=== PATIENT | male | born 1990 ===

== ENCOUNTER 2017-01-11 23:55 | Emergency (ER) | payer OTHER ==
[2017-01-11 23:56] VITALS: BMI 35.2
[2017-01-12 00:04] VITALS: BP 127/84; PULSE 80; RESP 16; TEMP 99.3; O2SAT 100
--- NOTE | 2017-01-12 00:10 | ED PDOC ---
HPI: CCC, URI, Sore Throat Time Seen by Provider: 01/12/17 00:09 Chief Complaint (Nursing): ENT Problem Chief Complaint (Provider): Sore throat History Per: Patient Additional Complaint(s): To ED for evaluation of sore throat and fever x 1 day. Last took Tylenol at 8pm. Patient concerned due to being on chemotherapy, last session . Past Medical History Vital Signs: Last Vital Signs Temp 99.3 F 01/12/17 00:00 Pulse 80 01/12/17 00:00 Resp 16 01/12/17 00:00 BP 127/84 01/12/17 00:00 Pulse Ox 100 01/12/17 00:10 - Medical History PMH: Anxiety Denies: Chronic Kidney Disease - Family History Family History: States: Diabetes - Immunization History Hx Tetanus Toxoid Vaccination: No Hx Influenza Vaccination: No Hx Pneumococcal Vaccination: No - Home Medications Home Medications: Ambulatory Orders Medication Instructions Recorded Clindamycin [Cleocin] 300 mg PO Q8 10 Days 01/12/17 Ibuprofen [Motrin] 600 mg PO Q6 #20 tab 01/12/17 - Allergies Allergies/Adverse Reactions: Allergies Allergy/AdvReac Type Severity Reaction Status Date / Time avocado Allergy SWELLING Verified 01/11/17 23:59 seasonal allergies Allergy CONGESTION Uncoded 01/11/17 23:59 - Laboratory Results Result Diagrams: 01/12/17 00:50 01/12/17 00:50 - ECG O2 Sat by Pulse Oximetry: 100 Medical Decision Making Medical Decision Making: Dr. Mendoza [phone] Contacted by video game script writer Disposition - Clinical Impression Clinical Impression: Pharyngitis - Disposition Referrals: Librado Frazier MD [Primary Care Provider] - Condition: GOOD Prescriptions: Clindamycin [Cleocin] 300 mg PO Q8 10 Days Ibuprofen [Motrin] 600 mg PO Q6 #20 tab Instructions: Pharyngitis (ED)
[2017-01-12] MEDS ORDERED: Clindamycin 600 MG in Sodium Chloride 0.9% 100 ML IVPB STA (00:23)
[2017-01-12 01:06] LABS: BASO # 0.1 K/uL (0.0-0.2); BASO % 1.2 % (0.0-2.0); EOS # 0.1 K/uL (0.0-0.7); EOS % 2.9 % (0.0-4.0); HEMATOCRIT 43.1 % (35.0-51.0); LYMPH # 1.6 K/uL (1.0-4.3); LYMPH % 33.7 % (20.0-40.0); MEAN CELL VOLUME 86.3 fl (80.0-94.0); MEAN CORPUSCULAR HEMOGLOBIN 28.2 pg (27.0-31.0); MEAN CORPUSCULAR HGB CONC 32.6 g/dL (33.0-37.0); MEAN PLATELET VOLUME 9.2 fl (7.2-11.7); MONO # 0.4 K/uL (0.0-0.8); NEUT # 2.5 K/uL (1.8-7.0); NEUT % 54.2 % (50.0-75.0); NRBC % 0.1 % (0.0-0.0); WHITE BLOOD COUNT 4.6 K/uL (4.8-10.8)
[2017-01-12 01:46] LABS: ALB/GLOB RATIO 1.2 (1.0-2.1); ALKALINE PHOSPHATASE 57 U/L (38-126); ALT/SGPT 38 U/L (21-72); AST/SGOT 21 U/L (17-59); BILIRUBIN,TOTAL 0.7 mg/dl (0.2-1.3); BLOOD UREA NITROGEN 19 mg/dl (9-20); CALCIUM 9.1 mg/dL (8.4-10.2); CARBON DIOXIDE 23 mmol/L (22-30); CHLORIDE 101 mmol/L (98-107); GFR AFRICAN-AMERICAN > 60; GLUCOSE,RANDOM 103 mg/dL (75-110); POTASSIUM 4.4 MMOL/L (3.6-5.0); SODIUM 140 mmol/l (132-148)
== END 2017-01-12 02:20 | disposition home or self-care (01) ==
LOC: H.ER 23:55
DX: J02.9 Acute pharyngitis, unspecified (principal); R50.9 Fever, unspecified

== ENCOUNTER 2017-03-02 01:44 | Emergency (ER) | payer OTHER ==
[2017-03-02 01:45] VITALS: BMI 35.2
[2017-03-02 02:03] VITALS: PULSE 85; RESP 16; TEMP 98.4; O2SAT 98
[2017-03-02] MEDS ORDERED: Sodium Chloride 0.9% 1,000 ML IV STA (02:19)
--- NOTE | 2017-03-02 02:32 | ED PDOC ---
HPI: Abdomen Time Seen by Provider: 03/02/17 01:58 Chief Complaint (Nursing): Abdominal Pain Chief Complaint (Provider): epigastric pain History Per: Patient History/Exam Limitations: no limitations Onset/Duration Of Symptoms: Days (3) Outside of [place] travel?: No Current Symptoms Are (Timing): Still Present Location Of Pain/Discomfort: Epigastric Quality Of Discomfort: Burning, Pressure Associated Symptoms: denies: Fever, Chills, Nausea, Vomiting, Diarrhea, Loss Of Appetite, Back Pain, Chest Pain, Constipation, Urinary Symptoms Additional Complaint(s): 27 yo M in ED for eval of epigastric pain x 3 d without vomiting nausea fever back pain change in BM. pt states that he has colon cancer undergoing chemo tx since nov. denies noting pain after eating or feeling improved symptoms with eating. admits to hx of GERD, but never with discomfort like this. Past Medical History Reviewed: Historical Data, Nursing Documentation, Vital Signs Vital Signs: Last Vital Signs Temp 98.4 F 03/02/17 02:00 Pulse 85 03/02/17 02:00 Resp 16 03/02/17 02:00 BP 144/92 H 03/02/17 04:26 Pulse Ox 98 03/02/17 02:34 - Medical History PMH: Anxiety Denies: Chronic Kidney Disease - Family History Family History: States: Diabetes - Immunization History Hx Tetanus Toxoid Vaccination: No Hx Influenza Vaccination: No Hx Pneumococcal Vaccination: No - Home Medications Home Medications: Ambulatory Orders Medication Instructions Recorded Clindamycin [Cleocin] 300 mg PO Q8 10 Days 01/12/17 Ibuprofen [Motrin] 600 mg PO Q6 #20 tab 01/12/17 Famotidine [Pepcid] 20 mg PO BID #16 tab 03/02/17 - Allergies Allergies/Adverse Reactions: Allergies Allergy/AdvReac Type Severity Reaction Status Date / Time avocado Allergy SWELLING Verified 01/11/17 23:59 seasonal allergies Allergy CONGESTION Uncoded 01/11/17 23:59 Review of Systems ROS Statement: Except As Marked, All Systems Reviewed And Found Negative Constitutional: Negative for: Fever, Chills Cardiovascular: Negative for: Chest Pain, Palpitations Gastrointestinal: Positive for: Abdominal Pain. Negative for: Nausea, Vomiting , Diarrhea Physical Exam - Reviewed Nursing Documentation Reviewed: Yes Vital Signs Reviewed: Yes - Physical Exam Appears: Positive for: Non-toxic, No Acute Distress, Uncomfortable Head Exam: Positive for: ATRAUMATIC, NORMAL INSPECTION, NORMOCEPHALIC Skin: Positive for: Normal Color, Warm, DRY ENT: Positive for: Normal ENT Inspection Neck: Positive for: Normal, Painless ROM Cardiovascular/Chest: Positive for: Regular Rate, Rhythm Respiratory: Positive for: CNT, Normal Breath Sounds Gastrointestinal/Abdominal: Positive for: Bowel Sounds, Soft, Tenderness ( epigastric area(mild)) Back: Positive for: Normal Inspection. Negative for: L CVA Tenderness, R CVA Tenderness Extremity: Positive for: Normal ROM Neurologic/Psych: Positive for: Alert, Oriented - Laboratory Results Result Diagrams: 03/02/17 02:28 03/02/17 02:28 - ECG O2 Sat by Pulse Oximetry: 98 - Progress ED Course And Treament: impression: GERD vs gallbladder vs pancres will do cbc/cmp/lipase and give Pepcid/NS fluids. Medical Decision Making Medical Decision Making: ct scan: ABDOMEN: Liver: Apparent mild heterogeneity of LEFT lobe. Gallbladder and bile ducts: No calcified stones. No ductal dilation. Pancreas: No ductal dilation. No mass. Spleen: Mild splenomegaly, increased in size. Adrenals: No mass. Kidneys and ureters: No mass. No hydronephrosis. Stomach and bowel: Postsurgical changes of LEFT colon. Segmental areas of underdistention of colon. No definite mural thickening. No obstruction. Appendix: Normal caliber. No inflammation. PELVIS: Bladder: Unremarkable. Reproductive: Unremarkable as visualized. ABDOMEN and PELVIS: Intraperitoneal space: No significant fluid collection. No free air. Bones/joints: No acute fracture. Soft tissues: Laparotomy scar. Vasculature: Unremarkable. No abdominal aortic aneurysm. Lymph nodes: Several subcentimeter short axis mesenteric lymph nodes, nonspecific. IMPRESSION: 1. Heterogeneity of liver. Recommend MRI to exclude underlying pathology. 2. Mild splenomegaly. 3. Incidental/non-acute findings are described above. PT advised to f/u with pmd stable VS and Rx pepcid for pain. Pt educated on results. Disposition - Clinical Impression Clinical Impression: Abdominal pain - Patient ED Disposition Is Patient to be Admitted: No Counseled Patient/Family Regarding: Studies Performed, Diagnosis, Need For Followup, Rx Given - Disposition Referrals: Librado Frazier MD [Primary Care Provider] - Zev Pressley MD [Staff Provider] - Disposition Time: 04:57 Condition: STABLE Prescriptions: Famotidine [Pepcid] 20 mg PO BID #16 tab Instructions: Gastroesophageal Reflux Disease (ED) Forms: [facility] ED School/Work Excuse
[2017-03-02 02:33] LABS: BASO # 0.1 K/uL (0.0-0.2); BASO % 1.7 % (0.0-2.0); EOS # 0.1 K/uL (0.0-0.7); EOS % 1.7 % (0.0-4.0); HEMATOCRIT 40.8 % (35.0-51.0); LYMPH # 2.1 K/uL (1.0-4.3); LYMPH % 33.6 % (20.0-40.0); MEAN CELL VOLUME 89.7 fl (80.0-94.0); MEAN CORPUSCULAR HEMOGLOBIN 30.9 pg (27.0-31.0); MEAN CORPUSCULAR HGB CONC 34.5 g/dL (33.0-37.0); MONO # 0.8 K/uL (0.0-0.8); MONO % 12.3 % (0.0-10.0); NEUT # 3.1 K/uL (1.8-7.0); NEUT % 50.7 % (50.0-75.0); RED CELL DISTRIBUTION WIDTH 19.3 % (11.5-14.5); WHITE BLOOD COUNT 6.2 K/uL (4.8-10.8)
[2017-03-02 02:49] LABS: CHLORIDE 102 mmol/L (98-107)
[2017-03-02 02:50] LABS: SODIUM 140 mmol/l (132-148)
[2017-03-02 02:52] LABS: GFR AFRICAN-AMERICAN > 60
[2017-03-02 02:53] LABS: ALB/GLOB RATIO 1.2 (1.0-2.1); ALKALINE PHOSPHATASE 58 U/L (38-126); ALT/SGPT 85 U/L (21-72); AST/SGOT 56 U/L (17-59); BLOOD UREA NITROGEN 10 mg/dl (9-20); CALCIUM 9.8 mg/dL (8.4-10.2); CARBON DIOXIDE 28 mmol/L (22-30); GLUCOSE,RANDOM 113 mg/dL (75-110); LIPASE 112 U/L (23-300); TOTAL PROTEIN 7.7 G/DL (6.3-8.2)
[2017-03-02] MEDS ORDERED: Iohexol 300 100 ML IJ ONE (03:54)
[2017-03-02] MEDS ORDERED: Sodium Chloride 0.9% 50 ML IV ONE (03:54)
[2017-03-02 04:27] VITALS: BP 144/92
--- NOTE | 2017-03-02 04:40 | CT ---
EXAM: CT Abdomen and Pelvis With Intravenous Contrast CLINICAL HISTORY: 27 years old, male; Pain; Abdominal pain; Epigastric; Additional info: Epigastric pain severe. Currrenlty getting chemotx TECHNIQUE: Axial computed tomography images of the abdomen and pelvis with intravenous contrast. This CT exam was performed using one or more of the following dose reduction techniques: automated exposure control, adjustment of the mA and/or kV according to patient size, and/or use of iterative reconstruction technique. Coronal and sagittal reformatted images were created and reviewed. CONTRAST: 95 mL of [id number] administered intravenously. COMPARISON: CT - ABD PELVIS PO IV CONTRAST 08/10/2016 4:17:52 PM FINDINGS: Lower thorax: Mild atelectasis. ABDOMEN: Liver: Apparent mild heterogeneity of LEFT lobe. Gallbladder and bile ducts: No calcified stones. No ductal dilation. Pancreas: No ductal dilation. No mass. Spleen: Mild splenomegaly, increased in size. Adrenals: No mass. Kidneys and ureters: No mass. No hydronephrosis. Stomach and bowel: Postsurgical changes of LEFT colon. Segmental areas of underdistention of colon. No definite mural thickening. No obstruction. Appendix: Normal caliber. No inflammation. PELVIS: Bladder: Unremarkable. Reproductive: Unremarkable as visualized. ABDOMEN and PELVIS: Intraperitoneal space: No significant fluid collection. No free air. Bones/joints: No acute fracture. Soft tissues: Laparotomy scar. Vasculature: Unremarkable. No abdominal aortic aneurysm. Lymph nodes: Several subcentimeter short axis mesenteric lymph nodes, nonspecific. IMPRESSION: 1. Heterogeneity of liver. Recommend MRI to exclude underlying pathology. 2. Mild splenomegaly. 3. Incidental/non-acute findings are described above.
--- NOTE | 2017-03-02 13:23 | CARD ---
APPROVED REPORT EKG Measurement Heart [id number] MI 110P8 [id number] <Conclusion> Sinus rhythm with short MI Otherwise normal ECG
== END 2017-03-02 05:24 | disposition home or self-care (01) ==
LOC: H.ER 01:44
DX: R10.13 Epigastric pain (principal); C18.9 Malignant neoplasm of colon, unspecified; K21.0 Gastro-esophageal reflux disease with esophagitis; F41.9 Anxiety disorder, unspecified; R16.1 Splenomegaly, not elsewhere classified

== ENCOUNTER 2017-06-15 02:15 | Emergency (ER) | payer OTHER ==
[2017-06-15 02:16] VITALS: BMI 35.2
[2017-06-15 02:33] VITALS: BP 139/84; PULSE 95; RESP 18; TEMP 98.9; O2SAT 100
--- NOTE | 2017-06-15 02:47 | ED PDOC ---
HPI: General Adult Time Seen by Provider: 06/15/17 02:25 Chief Complaint (Nursing): Rib Injury History Per: Patient Additional Complaint(s): Pt. states earlier today he was taking a shower when he slipped and fell landing on his L side injuring his L shoulder/upper arm and the L side of his chest. Reports chest pain worsens with deep inspiration and with movement. Denies head injury, N/V, anticoagulant use, abdominal pain, bruising, SOB. Past Medical History Reviewed: Historical Data, Nursing Documentation, Vital Signs Vital Signs: Last Vital Signs Temp 98.9 F 06/15/17 02:29 Pulse 95 H 06/15/17 02:29 Resp 18 06/15/17 02:29 BP 139/84 06/15/17 02:29 Pulse Ox 100 06/15/17 05:34 - Medical History PMH: Anxiety Denies: Chronic Kidney Disease Other PMH: Colon CA - Surgical History Other surgeries: colon resection - Family History Family History: States: Diabetes - Immunization History Hx Tetanus Toxoid Vaccination: No Hx Influenza Vaccination: No Hx Pneumococcal Vaccination: No - Home Medications Home Medications: Ambulatory Orders Medication Instructions Recorded Clindamycin [Cleocin] 300 mg PO Q8 10 Days 01/12/17 Ibuprofen [Motrin] 600 mg PO Q6 #20 tab 01/12/17 Famotidine [Pepcid] 20 mg PO BID #16 tab 03/02/17 - Allergies Allergies/Adverse Reactions: Allergies Allergy/AdvReac Type Severity Reaction Status Date / Time avocado Allergy SWELLING Verified 01/11/17 23:59 seasonal allergies Allergy CONGESTION Uncoded 01/11/17 23:59 Review of Systems ROS Statement: Except As Marked, All Systems Reviewed And Found Negative Cardiovascular: Positive for: Chest Pain Respiratory: Positive for: Pleuritic Pain Physical Exam - Physical Exam Appears: Positive for: Well, Non-toxic, No Acute Distress Head Exam: Positive for: ATRAUMATIC, NORMAL INSPECTION, NORMOCEPHALIC Skin: Positive for: Normal Color, Warm. Negative for: Rash Cardiovascular/Chest: Positive for: Regular Rate, Rhythm. Negative for: Chest Non Tender (moderate L sided axillary chest wall tenderness) Respiratory: Positive for: Normal Breath Sounds, Other (no flail chest; no ecchymosis). Negative for: Decreased Breath Sounds, Accessory Muscle Use, Rales , Rhonchi, Respiratory Distress Pulses-Radial (L): 2+ Pulses-Radial (R): 2+ Gastrointestinal/Abdominal: Positive for: Normal Exam, Bowel Sounds, Soft, Other (no ecchymosis). Negative for: Tenderness (to deep palpation including both subcostal areas) Back: Positive for: Normal Inspection. Negative for: L CVA Tenderness, R CVA Tenderness Extremity: Positive for: Normal ROM, Capillary Refill (< 2 seconds of L upper extremity), Other (L lateral shoulder tenderness and mid upper arm tenderness without deformity or swelling) - ECG O2 Sat by Pulse Oximetry: 100 - Radiology X-Ray: Interpreted by Me (L shoulder/humerus x-ray) X-Ray Interpretation: No Acute Disease - Progress ED Course And Treament: CT chest w/o contrast ordered. Pt. offers pain meds but he took Motrin at home with moderate analgesia. 0530 CT chest w/o contrast: 1. No definite noncontrast CT evidence of visceral injury. 2. Splenomegaly. On re-evaluation, pt. sleeping comfortably and easily arousable. Informed of results. Reports he does have a hx of spleenomegaly but has no pain in the abd or LUQ. Abd without any subcostal tenderness b/l. Pt. provided incentive spirometer. Disposition - Clinical Impression Clinical Impression: Chest wall contusion, Shoulder contusion - Patient ED Disposition Is Patient to be Admitted: No - Disposition Disposition: Routine/Home Disposition Time: 05:37 Condition: STABLE Instructions: Chest Wall Pain (ED), Shoulder Sprain (ED) Forms: [employer] (Luxem[place]ish) Print Language: THAI
--- NOTE | 2017-06-15 05:27 | CT ---
EXAM: CT Chest Without Intravenous Contrast CLINICAL HISTORY: 27 years old, male; Injury or trauma; Fall; Initial encounter; Blunt trauma (contusions or hematomas) TECHNIQUE: Axial computed tomography images of the chest without intravenous contrast. All CT scans at this facility use one or more dose reduction techniques, viz.: automated exposure control; ma/kV adjustment per patient size (including targeted exams where dose is matched to indication; i.e. head); or iterative reconstruction technique. COMPARISON: Limitations: Lack of intravenous contrast. FINDINGS: Lungs: Minimal atelectasis. No consolidation. Pleural space: No pneumothorax. No significant effusion. Heart: No cardiomegaly. No significant pericardial effusion. Bones/joints: Mild wedge deformity T11 vertebral body, likely chronic. No acute fracture. Soft tissues: Unremarkable. Vasculature: Unremarkable. No aneurysm. Lymph nodes: No pathologically enlarged lymph nodes. Spleen: Markedly enlarged spleen. Tubes, lines and devices: Central venous catheter. IMPRESSION: 1. No definite noncontrast CT evidence of visceral injury. 2. Splenomegaly. 3. Incidental/non-acute findings are described above.
--- NOTE | 2017-06-15 10:56 | RAD ---
PROCEDURE: Radiographs of the Left Shoulder HISTORY: trauma COMPARISON: No prior. FINDINGS: BONES: Normal. No fracture. JOINTS: Normal. Glenohumeral and acromioclavicular joints preserved. No osteoarthritis. SOFT TISSUES: Normal. OTHER FINDINGS: None. IMPRESSION: Normal radiographs of the left shoulder.
--- NOTE | 2017-06-15 10:58 | RAD ---
PROCEDURE: Radiographs of the left humerus. HISTORY: trauma COMPARISON: None. FINDINGS: BONES: Normal. No fracture or focal lesion. SOFT TISSUES: There is a small radiodensity seen cephalad to the distal clavicle not seen in the left shoulder radiographic series which may be artifact or heterotopic calcification. OTHER FINDINGS: None. IMPRESSION: No acute fracture dislocation left humerus. A small potential artifact are heterotopic soft tissue calcification in the soft tissues related to the distal left clavicle. This is not seen the prior left shoulder radiograph series and artifact is favored. This part of the left shoulder is not captured on the chest CT also performed 06/15/2017.
== END 2017-06-15 06:00 | disposition home or self-care (01) ==
LOC: H.ER 02:15
DX: S20.219A Contusion of unspecified front wall of thorax, initial encounter (principal); S40.012A Contusion of left shoulder, initial encounter; W18.2XXA Fall in (into) shower or empty bathtub, initial encounter; Y92.002 Bathroom of unspecified non-institutional (private) residence as the place of occurrence of the external cause; F41.9 Anxiety disorder, unspecified; Z85.038 Personal history of other malignant neoplasm of large intestine

== ENCOUNTER 2018-06-06 18:14 | Emergency (ER) | payer OTHER ==
[2018-06-06 18:15] VITALS: BMI 33.0
[2018-06-06 18:25] VITALS: O2SAT 97
[2018-06-06] MEDS ORDERED: Sodium Chloride 0.9% 1,000 ML IV STA (18:35)
--- NOTE | 2018-06-06 18:39 | ED PDOC ---
HPI: Chest Pain Time Seen by Provider: 06/06/18 18:26 Chief Complaint (Nursing): Chest Pain Chief Complaint (Provider): Chest pain History Per: Patient History/Exam Limitations: no limitations Onset/Duration Of Symptoms: Days (today approx 1-2 hrs ago) Current Symptoms Are (Timing): Still Present Additional Complaint(s): Pt. with chest pain sternal after lifting heavy bags. Dyspnea with it. No nausea, vomit, abd pain, back pain, leg pain, headaches, dizziness. No weakness. No long distance travel or hormone use. Pt. had colon ca and is cancer free now. Has had stool tinged with blood mild off and on for a long time and has spoke with his doctor and evaluated for it. Told it is not an issue and likely from straining. Past Medical History Reviewed: Nursing Documentation, Vital Signs Vital Signs: Last Vital Signs Temp 97.8 F 06/06/18 18:23 Pulse 88 06/06/18 18:23 Resp 20 06/06/18 18:23 BP 124/89 06/06/18 18:23 Pulse Ox 97 06/06/18 18:40 - Medical History PMH: Anxiety, Colonic Polyps (COLON CANCER), Gastritis Denies: Chronic Kidney Disease - Surgical History Surgical History: Endoscopy - Family History Family History: States: Diabetes - Immunization History Hx Tetanus Toxoid Vaccination: No Hx Influenza Vaccination: No Hx Pneumococcal Vaccination: No - Home Medications Home Medications: Ambulatory Orders Medication Instructions Recorded Multivitamin [Multivitamins] 1 tab PO DAILY 11/16/17 - Allergies Allergies/Adverse Reactions: Allergies Allergy/AdvReac Type Severity Reaction Status Date / Time avocado Allergy SWELLING Verified 06/06/18 18:22 seasonal allergies Allergy CONGESTION Uncoded 06/06/18 18:22 Review of Systems ROS Statement: Except As Marked, All Systems Reviewed And Found Negative Cardiovascular: Positive for: Chest Pain Respiratory: Positive for: Shortness of Breath Gastrointestinal: Positive for: Hematochezia (trace in stool (not new for pt.)) Physical Exam - Reviewed Nursing Documentation Reviewed: Yes Vital Signs Reviewed: Yes - Physical Exam Appears: Positive for: Non-toxic, No Acute Distress Head Exam: Positive for: ATRAUMATIC, NORMAL INSPECTION, NORMOCEPHALIC Skin: Positive for: Normal Color, Warm, DRY Eye Exam: Positive for: EOMI, Normal appearance, PERRL ENT: Positive for: Normal ENT Inspection Neck: Positive for: Normal, Painless ROM Cardiovascular/Chest: Positive for: Regular Rate, Rhythm. Negative for: Chest Non Tender (mild sternal; no erythema) Respiratory: Positive for: CNT, Normal Breath Sounds Gastrointestinal/Abdominal: Positive for: Normal Exam, Soft. Negative for: Tenderness Back: Positive for: Normal Inspection. Negative for: L CVA Tenderness, R CVA Tenderness Extremity: Positive for: Normal ROM. Negative for: Tenderness, Pedal Edema, Calf Tenderness Neurologic/Psych: Positive for: Alert, Oriented - Laboratory Results Result Diagrams: 06/06/18 18:57 06/06/18 18:57 Interpretation Of Abn Labs: no acute - ECG ECG: Positive for: Interpreted By Me, Viewed By Me ECG Rhythm: Positive for: Normal QRS, Normal ST Segment, Sinus Rhythm O2 Sat by Pulse Oximetry: 97 Pulse Ox Interpretation: Normal - Radiology X-Ray: Interpreted by Me, Viewed By Me X-Ray Interpretation: No Acute Disease - Progress ED Course And Treament: 213: Stable. AAOx3. Pain free. Tolerated po. FU with pcp. Disposition - Clinical Impression Clinical Impression: Chest wall pain - Patient ED Disposition Is Patient to be Admitted: No Counseled Patient/Family Regarding: Studies Performed, Diagnosis, Need For Followup - Disposition Referrals: [facility] [Outside] - 06/07/18 Disposition: Routine/Home Disposition Time: 21:30 Condition: STABLE Additional Instructions: Return if not better in 3 days. Instructions: Chest Pain That Is Not Caused by the Heart (DC)
[2018-06-06 19:03] LABS: BASO % 0.5 % (0.0-2.0); EOS # 0.1 K/uL (0.0-0.7); EOS % 1.7 % (0.0-4.0); HEMOGLOBIN 15.9 g/dL (12.0-18.0); LYMPH # 1.8 K/uL (1.0-4.3); LYMPH % 21.9 % (20.0-40.0); MEAN CELL VOLUME 86.1 fl (80.0-94.0); MEAN CORPUSCULAR HGB CONC 33.7 g/dL (33.0-37.0); MEAN PLATELET VOLUME 9.9 fl (7.2-11.7); MONO # 0.5 K/uL (0.0-0.8); MONO % 6.2 % (0.0-10.0); NEUT # 5.9 K/uL (1.8-7.0); NEUT % 69.7 % (50.0-75.0); RBC 5.5 Mil/uL (4.40-5.90); RED CELL DISTRIBUTION WIDTH 13.9 % (11.5-14.5); WHITE BLOOD COUNT 8.4 K/uL (4.8-10.8)
[2018-06-06 19:22] LABS: ALB/GLOB RATIO 1.5 (1.0-2.1); ALBUMIN 4.6 g/dL (3.5-5.0); ALT/SGPT 44 U/L (21-72); AST/SGOT 27 U/L (17-59); BLOOD UREA NITROGEN 18 mg/dl (9-20); CALCIUM 9.5 mg/dL (8.4-10.2); GFR AFRICAN-AMERICAN > 60; GFR NON-AFRICAN AMERICAN > 60
[2018-06-06 22:43] VITALS: BP 122/65; PULSE 84; RESP 18; TEMP 98.4
--- NOTE | 2018-06-07 08:04 | CARD ---
APPROVED REPORT Date of service: 06/06/2018 EKG Measurement Heart [id number] HI 122P4 [id number] <Conclusion> Normal sinus rhythm Normal ECG
--- NOTE | 2018-06-07 08:50 | RAD ---
HISTORY: COMPARISON: CT chest without contrast from 06/15/2017. TECHNIQUE: Chest PA and lateral FINDINGS: LINES AND TUBES: The right MediPort terminates in the SVC. LUNG AND PLEURA: The lungs are well inflated and clear. No pleural effusion or pneumothorax. HEART AND MEDIASTINUM: The heart is not enlarged. The hilar and mediastinal contours are within normal limits. SKELETAL STRUCTURES: The bony structures are within normal limits for the patient's age. VISUALIZED UPPER ABDOMEN: Normal. OTHER FINDINGS: None. IMPRESSION: No active pulmonary disease.
== END 2018-06-06 22:43 | disposition home or self-care (01) ==
LOC: H.ER 18:14
DX: R07.89 Other chest pain (principal); F41.9 Anxiety disorder, unspecified; Z85.038 Personal history of other malignant neoplasm of large intestine
CPT/HCPCS: 71046; 80053; 84484; 85025; 85378; 93005; 99283; J7030